=== PATIENT | female | born 1985 | race Caucasian/White ===

== ENCOUNTER → 2016-11-29 | Outpatient (CLI) | payer OTHER ==
[~2016-11-29] MED LIST: LEVO50TA6 PO; PRENTAB26 PO; PRT/40; ZNTT/150 PO
[2016-11-29 13:42] LABS: THYROID STIMULATING HORMONE 1.23 uIu/ml (0.300-4.500)
[2016-11-29 13:52] LABS: GTGD 50 Grams
== END | disposition home or self-care (01) ==
LOC: C.LAB1850 11:46
PROVIDERS: ATTEND Obstetrics & Gynecology
DX: Z00.00 Encounter for general adult medical examination without abnormal findings (principal); O99.280 Endocrine, nutritional and metabolic diseases complicating pregnancy, unspecified trimester

== ENCOUNTER → 2017-01-22 | Outpatient (CLI) | payer OTHER ==
[2017-01-22 11:00] LABS: THYROID STIMULATING HORMONE 2.14 uIu/ml (0.300-4.500)
== END | disposition home or self-care (01) ==
LOC: C.LAB1850 09:23
PROVIDERS: ATTEND Internal Medicine Endocrinology, Diabetes & Metabolism
DX: E03.9 Hypothyroidism, unspecified (principal)

== ENCOUNTER → 2017-02-12 | Outpatient (CLI) | payer OTHER ==
[2017-02-12 11:14] LABS: HEMATOCRIT 33.6 % (37-47)
[2017-02-12 11:42] LABS: GTGD 50 Grams
[2017-02-12 13:40] LABS: URINE APPEARANCE CLOUDY (CLEAR); URINE BILIRUBIN NEG (NEG); URINE COLOR YELLOW; URINE EPITHELIAL CELL AUTO >30 /lpf (0-5); URINE NITRITE NEG (NEG); URINE PH 7.5 (4.5-7.5); URINE SPECIFIC GRAVITY 1.021 (1.000-1.030); UROBILINOGEN NEG (NEG)
[2017-02-12 13:50] LABS: MANUAL MICROSCOPIC REQUIRED? NO; REVIEW REQ? NO
== END | disposition home or self-care (01) ==
LOC: C.LAB1850 09:17
PROVIDERS: ATTEND Obstetrics & Gynecology
DX: O09.293 Supervision of pregnancy with other poor reproductive or obstetric history, third trimester (principal); O99.283 Endocrine, nutritional and metabolic diseases complicating pregnancy, third trimester

== ENCOUNTER → 2017-04-04 | Outpatient (CLI) | payer OTHER ==
[~2017-04-04] MED LIST changes: +PANT40TA2; -PRT/40
[2017-04-04 09:50] LABS: THYROID STIMULATING HORMONE 2.47 uIu/ml (0.300-4.500)
== END | disposition home or self-care (01) ==
LOC: C.LAB1850 08:03
PROVIDERS: ATTEND Internal Medicine Endocrinology, Diabetes & Metabolism
DX: E03.9 Hypothyroidism, unspecified (principal)

== ENCOUNTER → 2017-04-11 | Outpatient (CLI) | payer OTHER ==
[2017-04-11 12:03] LABS: URINE APPEARANCE CLEAR (CLEAR); URINE BILIRUBIN NEG (NEG); URINE COLOR YELLOW; URINE NITRITE NEG (NEG); URINE SPECIFIC GRAVITY 1.005 (1.000-1.030); UROBILINOGEN NEG (NEG)
[2017-04-11 12:08] LABS: MANUAL MICROSCOPIC REQUIRED? NO; REVIEW REQ? NO
== END | disposition home or self-care (01) ==
LOC: C.LAB1850 10:18
PROVIDERS: ATTEND Obstetrics & Gynecology
DX: O09.293 Supervision of pregnancy with other poor reproductive or obstetric history, third trimester (principal); R39.9 Unspecified symptoms and signs involving the genitourinary system

== ENCOUNTER 2017-05-02 02:45 | Inpatient (IN) | payer OTHER ==
[~2017-05-02] VITALS: Ht 162.6 cm; Wt 64.0 kg
[2017-05-02 03:56] VITALS: Ht 162.6 cm; Wt 64.0 kg
[2017-05-02] MEDS ORDERED: ZNTT/150 PO (03:56)
[2017-05-02] MEDS ORDERED: LEVO50TA6 PO (03:56)
[2017-05-02] MEDS ORDERED: PANT40TA2 (03:56)
[2017-05-02] MEDS ORDERED: PRENTAB26 PO (03:56)
[2017-05-02] MEDS ORDERED: LACTATED RINGER'S 1000ML 1,000 ML IV PRN (04:00)
[2017-05-02 05:16] LABS: HEMATOCRIT 35.6 % (37-47); MEAN CELL VOLUME 95.7 fL (80-100); MEAN CORPUSCULAR HEMOGLOBIN 33.1 pg (25-34); MEAN CORPUSCULAR HGB CONC 34.6 g/dl (32-36); MEAN PLATELET VOLUME 11.6 fL (7.4-10.4); PLATELET COUNT 193 K/uL (130-400); RED BLOOD COUNT 3.72 M/uL (4.2-5.4); WHITE BLOOD COUNT 7.73 K/uL (4.8-10.8)
[2017-05-02] MEDS ORDERED: EpHEDrine SULFATE INJ 50 MG/ML AMP ONE (10:38)
[2017-05-02] MEDS ORDERED: FENTANYL 2MCG/ML ROPIV 1.25MG/ML 100ML BAG EPI ONE (10:38)
[2017-05-02] MEDS ORDERED: BUPIVACAINE 0.25% 30 ML VIAL ONE (10:38)
[2017-05-02] MEDS ORDERED: FENTANYL CITRATE INJ 50 MCG/1 ML 2 ML VIAL ONE (10:39)
[2017-05-02] MEDS ORDERED: NALOXONE HCL INJ 1 MG in SODIUM CHLORIDE 0.9% 1000ML 1,000 ML IV PRN (10:44)
[2017-05-02] MEDS ORDERED: LACTATED RINGER'S 1000ML 500 ML IV PRN ×2 (10:44→12:18)
[2017-05-02] MEDS ORDERED: NALOXONE HCL INJ 0.4 MG/1 ML VIAL/CARP IV PRN (10:45)
[2017-05-02] MEDS ORDERED: NALBUPHINE HCL INJ 10 MG/ML AMP IV PRN (10:45)
[2017-05-02] MEDS ORDERED: DiphenhydrAMINE HCL 50 MG/ML VIAL IV PRN (10:45)
[2017-05-02] MEDS ORDERED: ONDANSETRON INJ 2 MG/ML 2 ML VIAL IV PRN (10:45)
[2017-05-02] MEDS ORDERED: EpHEDrine SULFATE INJ 50 MG/ML AMP IV PRN (10:45)
[2017-05-02] MEDS: LACTATED RINGER'S 1000ML 1,000 ML IV SCH ×2 (11:16→17:30)
[2017-05-02] MEDS ORDERED: OXYTOCIN 30 UNITS/500ML NSS IV PRN ×2 (12:30→21:15)
[2017-05-02] MEDS: FENTANYL 2MCG/ML ROPIV 1.25MG/ML 100ML BAG EPI PRN ×2 (15:00→19:53)
[2017-05-02] MEDS ORDERED: LANOLIN OINT EXT PRN ×2 (21:15)
[2017-05-02] MEDS ORDERED: ACETAMINOPHEN/CODEINE 300/30MG TAB PO PRN ×2 (21:15)
[2017-05-02] MEDS ORDERED: BENZOCAINE 20% AER SPR 82.5 GM CAN EXT PRN (21:15)
[2017-05-02] MEDS ORDERED: ACETAMINOPHEN 325 MG TAB PO PRN (21:15)
[2017-05-02] MEDS ORDERED: HYDROCORTISONE ACETATE 25 MG SUPP PR PRN (21:15)
[2017-05-02] MEDS ORDERED: SUPERCREAM 0.870 % 15GM JAR EXT PRN (21:15)
[2017-05-02] MEDS ORDERED: DIPHTHERIA/TETANUS/PERTUSSIS 0.5 ML SYR/VIAL IM. ONE (21:15)
--- NOTE | 2017-05-02 21:43 | Anesthesia Procedure Note ---
Anesthesia Epidural Removal Nt Date & Time May 02, 2017 at 21:43 Vital Signs Pain Intensity: 1.0 Notes Mental Status: alert / awake / arousable, participated in evaluation Nausea / Vomiting: adequately controlled Pain: adequately controlled Airway Patency, RR, SpO2: stable & adequate BP & HR: stable & adequate Hydration State: stable & adequate Neuraxial Anesthesia: was administered, sensory block is resolving Anesthetic Complications: no major complications apparent, pt satisfied with anesthetic care Epidural: removed without complications, with tip intact
[2017-05-02] MEDS: OXYTOCIN INJ 20 UNITS in LACTATED RINGER'S 1000ML 1,000 ML IV SCH (21:52)
[2017-05-02] MEDS: IBUPROFEN 600 MG TAB PO PRN (23:18)
[2017-05-03] VITALS: BP 113/72; PULSE 79; TEMP 36.7
--- NOTE | 2017-05-03 01:21 | DELIVERY SUMMARY ---
DATE OF OPERATION: 05/02/2017 The patient dilated to complete and pushed to deliver a viable male Apgars 8 and 9 via over a partial third degree perineal laceration. Mouth and nose bulb suctioned at the perineum. Shoulders and body delivered with ease. vigorous and crying at . The was placed on the maternal abdomen. The cord was then doubly clamped and then cut. The placenta was delivered spontaneously intact, 3-vessel cord. Hemostasis achieved with dilute Pitocin and uterine massage. Laceration repaired in multiple layers in the usual fashion using 2-0 and 3-0 Vicryl. 1% lidocaine for extra anesthesia was administered. EBL 300 mL. Mother and baby stable in recovery. Cord gases sent. I attest to the content of the Intraoperative Record and any orders documented therein. Any exception s are noted below.
[2017-05-03 04:15] VITALS: BP 127/72; PULSE 69; TEMP 36.5
[2017-05-03] MEDS: IBUPROFEN 600 MG TAB PO PRN ×3 (04:15→18:09)
[2017-05-03 06:17] LABS: HEMATOCRIT 29.4 % (37-47)
--- NOTE | 2017-05-03 07:25 | Progress Note ---
Subjective May 03, 2017. Subjective conversation w/ patient, physical exam Ambulation: ambulating normally Voiding: no voiding problems Diet Tolerance: Regular Diet Lochia: Small Feeding Type: Breast Feeding Pain: bottom sore Objective Vital Signs Date Time Temp Pulse Resp B/P (MAP) Pulse Ox O2 Delivery O2 Flow Rate FiO2 05/03/17 04:15 36.5 69 20 127/72 (90) Room Air 05/03/17 00:00 36.7 79 20 113/72 (86) Room Air 05/03/17 00:00 Room Air Physical Exam General Appearance: WELL-APPEARING, WD/WN, NO APPARENT DISTRESS Respiratory/Chest: lungs clear Cardiovascular: regular rate, rhythm Abdomen: non tender, soft Fundus: Firm, Relation to Umbilicus (2 above, needs to void) Extremities: non-tender Laboratory Results Last 24 Hours Test 05/03/17 05:48 Hemoglobin 9.9 g/dL Hematocrit 29.4 % Assessment and Plan Post- Day#: 1 Continue Routine Care: stable, routine care. hgb noted.
[2017-05-03] MEDS: RANITIDINE HCL 150 MG TAB PO SCH ×2 (07:38→19:46)
[2017-05-03] MEDS: DOCUSATE SODIUM 100 MG CAP PO SCH ×2 (07:38→19:46)
[2017-05-03] MEDS: LEVOTHYROXINE 50 MCG TAB PO SCH (07:38)
[2017-05-03 08:11] VITALS: BP 130/76; PULSE 68; TEMP 36.6
[2017-05-03] MEDS: OXYTOCIN INJ 20 UNITS in LACTATED RINGER'S 1000ML 1,000 ML IV SCH (08:34)
[2017-05-03 11:30] VITALS: BP 116/76; PULSE 66; TEMP 36.5; O2SAT 96
[2017-05-03 15:05] VITALS: BP 126/79; PULSE 71; TEMP 36.3; O2SAT 98
[2017-05-03 19:00] VITALS: BP 134/82; PULSE 73; TEMP 36.5
[2017-05-04 00:01] VITALS: BP 108/64; PULSE 73; TEMP 36.3
--- NOTE | 2017-05-04 06:44 | Progress Note ---
Subjective May 04, 2017. Subjective conversation w/ patient, physical exam, lab review Ambulation: ambulating normally Voiding: no voiding problems Passing Gas: Yes Diet Tolerance: Regular Diet Lochia: Small Feeding Type: Breast Feeding Pain: controlled with oral pain meds Objective Vital Signs Date Time Temp Pulse Resp B/P (MAP) Pulse Ox O2 Delivery O2 Flow Rate FiO2 05/04/17 00:01 36.3 73 18 108/64 (79) Room Air 05/04/17 00:01 Room Air 05/03/17 19:00 36.5 73 18 134/82 (99) Room Air 05/03/17 15:05 36.3 71 18 126/79 (95) 98 Room Air 05/03/17 15:05 98 Room Air 05/03/17 11:30 36.5 66 18 116/76 (89) 96 Room Air 05/03/17 08:11 36.6 68 18 130/76 (94) Room Air 05/03/17 07:45 Room Air Physical Exam General Appearance: WELL-APPEARING, WD/WN, NO APPARENT DISTRESS Respiratory/Chest: lungs clear, normal breath sounds Cardiovascular: regular rate, rhythm Abdomen: normal bowel sounds, non tender, soft Fundus: Firm, Non-Tender, Relation to Umbilicus (at u) Extremities: non-tender, normal inspection, no pedal edema Assessment and Plan Post- Day#: 2 Continue Routine Care: Doing well. Plan d/c. Instructions given.
--- NOTE | 2017-05-04 06:46 | Discharge Instructions ---
Discharge Instructions Date of Service May 04, 2017. Admission Reason for Admission: LABOR Discharge Discharge Diagnosis / Problem: s/p vaginal delivery Discharge Goals Goal(s): Routine recovery after delivery Medications Continue Dispensed Medications: supercream, dermaplast, tucks, lansinoh Activity Recommendations Activity Limitations: per Instructions/Follow-up section . Instructions / Follow-Up Instructions / Follow-Up ACTIVITY RECOMMENDATIONS: * Gradual return to full activity over the next 2-3 weeks. * No lifting - nothing heavier than baby over the next 2-3 weeks. * Do not engage in vigorous exercise, sexual activity or sports until cleared by your physician. * Do not drive or operate any motorized equipment until cleared by your physician. * You may shower/bathe daily. MEDICATIONS: For discomfort or pain, you may use Acetaminophen (Tylenol), Ibuprofen (Advil), or Naproxen (Aleve) following the package directions. For constipation you may use Colace following the package directions. BREAST CARE: If you are not breast feeding: * Wear a supportive bra 24 hours a day for one to two weeks. * Avoid stimulating your breasts and nipples as much as possible during the first few weeks after delivery. * When taking a shower, have the warm water hit your back, not breasts. * When your breasts feel full, apply ice packs. Usually three to four times a day helps ease the discomfort. * Take a mild pain medication (Tylenol / Motrin) when you are uncomfortable. If breast feeding: * Use breast milk to lubricate nipples. Lansinoh cream may be used for sore nipples. You do not need to remove cream prior to breast feeding. If using a different brand of cream, check the label for directions regarding removal of cream prior to nursing. * Wear a supportive bra. * If having problems with breasts or breast feeding, call a lifestyle consultant or your health care provider. EPISIOTOMY CARE: After delivery, if you have an episiotomy (stitches), the following steps will ease discomfort and aid healing. * For the first 24 hours after delivery, place ice packs next to your episiotomy to help reduce swelling. * After the first 24 hour-period, sitz baths, either portable or in the tub, are suggested. A shower with a shower arm sprayed over the episiotomy may be comforting. * Lola care should be done after each voiding and bowel movement. Squirt warm water from a plastic bottle over the perineum (region of the body between the anus and urinary opening) and pat dry. * Use Dermoplast to ease discomfort. Shake container. [place] directly over the episiotomy. Place a Tucks on a clean sanitary pad next to your episiotomy. SPECIAL CARE INSTRUCTIONS: When you are discharged from the hospital, it is important for you to follow the instructions listed below: * During the first week at home, you should be able to care for yourself and your baby. In addition, the usual light household activities are encouraged. * Limit your activities to the way you feel. Do not try to clean the house or move furniture. Be sensible. * If you actively engage in sports and have done so up until the time of your delivery, you may resume these activities as soon as you feel able. This may take up to one month or even longer. Use good judgment. * Continue to take your vitamins for at least six weeks after the of your baby. * Your diet need not be limited unless you were on a special diet before your delivery. Breast-feeding mothers need around 2500 calories per day and at least 64-80 ounces of fluid per day (8 to 10 glasses). * You should eat foods from the four major food groups. Crash diets or fad diets are to be avoided. Eating lean meats, fresh fruits and vegetables, low-fat dairy products, high fiber foods and a regular exercise program, will help you get back to your pre- weight without putting your health at risk. * Constipation is sometimes a problem after delivery. Take a mild laxative as needed. If breast feeding, Milk of Magnesia is acceptable to use. You may use a suppository or Fleets enema if no episiotomy. * A daily shower or tub bath is suggested. Be sure to thoroughly and gently dry the perineum. * A bloody vaginal discharge will usually continue until around four weeks post . A small amount of bleeding may continue for as long as six weeks. Vaginal discharge changes from the bright red bleeding after delivery to pink then brownish and finally yellowish-pink before becoming white and disappearing. * Bleeding may increase with activity. Your first period may come in 4-8 weeks. If you are breast feeding, your period may be delayed even longer. * [place] (sex) can begin whenever both you and your partner feel comfortable and do not have any form of genital infection. It is recommended that you wait at least six weeks for internal and external healing to occur. If you have questions, please talk to your health care practitioner. A condom should be used to prevent infection and . * Foreplay, gentle intercourse and lubrication is very important the first several times to prevent pain. A water-based lubricant such as K-Y jelly or Astroglide may be used. * If you have RH negative blood and your baby is RH positive, you will receive RHOGAM by injection prior to discharge. The nurse will give you a card to keep with you that has the date and place that you received RHOGAM after delivery. * During your care, you had a Rubella screen done to check for the presence of rubella antibodies in your blood. If your test was negative, you will receive a Rubella vaccine prior to discharge. This vaccine may cause a fever, soreness at the injection site and flu-like symptoms. If these symptoms persist, notify your health care practitioner. is not advised for one month after a Rubella vaccine. * Verbalizes understanding of car seat law as reviewed with patient nursing. * Car Seat hand-out given and reviewed with patient by nursing. * Shaken baby information reviewed with patient by nursing. Call you doctor if: * Heavy bleeding (saturating several pads an hour) or passing clots the size of your fist. * A fever >101 degrees F (38.3 degrees C) on two occasions four hours apart and /or chills. * Unusual pain in the pelvic or vaginal areas. * "Baby Blues" lasting longer than two weeks. If you have any questions or concerns, call your health care practitioner at . FOLLOW UP VISIT: * Please call the office at to schedule a 6 week examination. It is important you keep this appointment. It is important for you to make arrangements for either yearly or twice yearly check-ups thereafter. Current Hospital Diet Patient's current hospital diet: Regular OB Diet Discharge Diet Recommended Diet: Regular Diet Pending Studies Studies pending at discharge: no Medical Emergencies . Who to Call and When: Medical Emergencies: If at any time you feel your situation is an emergency, please call 911 immediately. . Non-Emergent Contact Non-Emergency issues call your: [employer] . . "Provider Documentation" section prepared by Latasha Peña. . VTE Core Measure Inpt VTE Proph given/why not?: Treatment not indicated
[2017-05-04] MEDS: DOCUSATE SODIUM 100 MG CAP PO SCH (07:53)
[2017-05-04] MEDS: IBUPROFEN 600 MG TAB PO PRN ×2 (07:53→13:08)
[2017-05-04] MEDS: RANITIDINE HCL 150 MG TAB PO SCH (07:53)
[2017-05-04] MEDS: LEVOTHYROXINE 50 MCG TAB PO SCH (07:53)
[2017-05-04 08:00] VITALS: BP 129/85; PULSE 74; TEMP 36.4; O2SAT 98
[2017-05-04 13:55] VITALS: BP_DIAS 85; PULSE 74; TEMP 36.4
== END 2017-05-04 14:50 | disposition home or self-care (01) | DRG 775 ==
LOC: C.LD 02:45 → C.OPB 02:45 → C.LD 04:02 → C.OPB 04:02 → C.OBG 23:46
PROVIDERS: ADMIT Obstetrics & Gynecology; ATTEND Obstetrics & Gynecology
PROC: 10E0XZZ Delivery of Products of Conception, External Approach (ICD-10-PCS; principal; 2017-05-02)
PROC: 10H07YZ Insertion of Other Device into Products of Conception, Via Natural or Artificial Opening (ICD-10-PCS; principal; 2017-05-02)
PROC: 0DQR0ZZ Repair Anal Sphincter, Open Approach (ICD-10-PCS; principal; 2017-05-02)
DX: O99.284 Endocrine, nutritional and metabolic diseases complicating childbirth (principal); E07.9 Disorder of thyroid, unspecified; O76 Abnormality in fetal heart rate and rhythm complicating labor and delivery; O70.20 Third degree perineal laceration during delivery, unspecified; O99.62 Diseases of the digestive system complicating childbirth; K21.9 Gastro-esophageal reflux disease without esophagitis; Z3A.39 39 weeks gestation of pregnancy; Z37.0 Single live birth; Z79.899 Other long term (current) drug therapy

== ENCOUNTER → 2017-06-24 | Outpatient (CLI) | payer OTHER ==
[~2017-06-24] MED LIST changes: -PANT40TA2; +PRT/40
== END | disposition home or self-care (01) ==
LOC: C.PAPS 10:49
PROVIDERS: ATTEND Obstetrics & Gynecology
DX: Z12.4 Encounter for screening for malignant neoplasm of cervix (principal)

== ENCOUNTER → 2017-07-08 | Outpatient (CLI) | payer OTHER ==
[2017-07-08 10:13] LABS: THYROID STIMULATING HORMONE 1.5 uIu/ml (0.300-4.500)
== END | disposition home or self-care (01) ==
LOC: C.LAB1850 08:04
PROVIDERS: ATTEND Internal Medicine Endocrinology, Diabetes & Metabolism
DX: E03.9 Hypothyroidism, unspecified (principal)

== ENCOUNTER → 2017-11-05 | Outpatient (CLI) | payer OTHER ==
[~2017-11-05] MED LIST changes: +PANT40TA2; -PRT/40
[2017-11-05 10:01] LABS: THYROID STIMULATING HORMONE 2.13 uIu/ml (0.300-4.500)
== END | disposition home or self-care (01) ==
LOC: C.LAB1850 08:18
PROVIDERS: ATTEND Internal Medicine Endocrinology, Diabetes & Metabolism
DX: E03.9 Hypothyroidism, unspecified (principal)

== ENCOUNTER → 2017-12-19 | Outpatient (CLI) | payer OTHER | END | disposition home or self-care (01) | LOC: C.LAB1850 15:26 | PROVIDERS: ATTEND Internal Medicine Endocrinology, Diabetes & Metabolism | DX: E03.9 Hypothyroidism, unspecified (principal) ==

== ENCOUNTER → 2018-02-27 | Outpatient (CLI) | payer OTHER ==
[~2018-02-27] MED LIST changes: +RANI150T85 PO; -ZNTT/150 PO
== END | disposition home or self-care (01) ==
LOC: C.LAB1850 09:11
PROVIDERS: ATTEND Internal Medicine Endocrinology, Diabetes & Metabolism
DX: E03.9 Hypothyroidism, unspecified (principal)

== ENCOUNTER → 2018-07-09 | Outpatient (CLI) | payer OTHER ==
[~2018-07-09] MED LIST changes: +DEXL60CA4 PO; +FLUT0.15 NAE; +KETO0.024 OP; +LEVO25TA PO; +LEVO25TA5 PO; -LEVO50TA6 PO; +NORE1TAB50; -PANT40TA2; -RANI150T85 PO
== END | disposition home or self-care (01) ==
LOC: C.LAB1850 12:30
PROVIDERS: ATTEND Internal Medicine Endocrinology, Diabetes & Metabolism
DX: E03.9 Hypothyroidism, unspecified (principal)

== ENCOUNTER 2021-06-21 07:30 | Inpatient (IN) ==
[2021-06-21] MEDS ORDERED: OXYTOCIN 30 UNITS/500 ML BAG IV PRN ×2 (08:13)
[2021-06-21 08:46] LABS: Hematocrit (blood only) 37.2 % (37-47); Hemoglobin 12.5 g/dL (12.0-16.0); Mean Corpuscular Hemoglobin 33.4 pg (25-34); Mean Corpuscular Hgb Conc 33.6 g/dL (32-36); Mean Corpuscular Volume 99.5 fL (80-100); Platelet Count 231 K/uL (130-400); RDW Coefficient of Variation 14.7 % (11.5-14.5); RDW Standard Deviation 53.4 fL (36.4-46.3); Red Blood Count 3.74 M/uL (4.2-5.4)
[2021-06-21] MEDS: PANTOprazole 40 MG TAB PO SCH (08:52)
[2021-06-21] MEDS: LACTATED RINGER'S 1,000 ML IV PRN ×2 (09:37→12:53)
--- NOTE | 2021-06-21 09:54 | Labor Progress Brief Note ---
Date of Service June 21, 2021 Subjective Admitted for IOL due to postdates, AMA. Mccullough last night was still in place on arrival. Very crampy, no LOF/VB, good FM. Assessment & Plan (1) Supervision of elderly multigravida: (2) Post-dates : Plan: Induction with pitocin, eventual AROM, epidural on request. Admission and Anticipated Discharge Date Admission Date: June 21, 2021 Physical Exam Physical Exam: M[place]ullough removed with a gentle tug. Cervix 4/75/-2/soft/post. FHT Cat 1 [place] irregular. Membranes intact. Vertex presentation. EFW 7lb. Results & Data ([facility]) Vital Signs (Past 12 Hours) Vital Signs Temp Pulse Resp BP 06/21/21 09:52 70 113/67 06/21/21 07:59 98.1 F 16 06/21/21 07:38 98.1 F 86 16 119/74 Coding Level of Care Code None Diagnoses Supervision of elderly multigravida O09.529 Post-dates O48.0
--- NOTE | 2021-06-21 11:14 | Labor Progress Brief Note ---
Date of Service June 21, 2021 Subjective Tolerating contractions with breathing. Assessment & Plan Admission and Anticipated Discharge Date Admission Date: June 21, 2021 Physical Exam Physical Exam: Still /-2 Well applied, more anterior. AROM clear fluid FHT Cat 1 [place] Q4 Pit @ 7 [facility] Vital Signs (Past 12 Hours) Vital Signs Temp Pulse Resp BP 06/21/21 10:53 70 20 103/62 06/21/21 10:37 67 20 125/71 06/21/21 10:23 75 109/75 06/21/21 10:08 71 109/71 06/21/21 09:52 70 113/67 06/21/21 07:59 98.1 F 16 06/21/21 07:38 98.1 F 86 16 119/74 Coding Level of Care Code None
[2021-06-21] MEDS ORDERED: ePHEDrine sulfate 50 MG/ML AMP ONE (12:14)
[2021-06-21] MEDS ORDERED: SODIUM CHLORIDE 0.9% INJ 10 ML VIAL ONE (12:14)
[2021-06-21] MEDS ORDERED: BUPIVACAINE 0.25% 30 ML VIAL ONE (12:14)
[2021-06-21] MEDS ORDERED: fentaNYL citrate 100 MCG/2 ML VIAL ONE (12:14)
[2021-06-21] MEDS ORDERED: fentaNYL 2MCG/ML ROPIVACAINE 1.25MG/ML 100 ML BAG EPI ONE (12:15)
[2021-06-21] MEDS ORDERED: ePHEDrine sulfate 50 MG/ML AMP IV PRN (12:39)
[2021-06-21] MEDS ORDERED: diphenhydrAMINE 50 MG/ML VIAL IV PRN (12:39)
[2021-06-21] MEDS ORDERED: NALOXONE HCL 0.4 MG/1 ML VIAL/CARP IV PRN (12:39)
[2021-06-21] MEDS ORDERED: NALBUPHINE HCL INJ 10 MG/ML AMP IV PRN (12:39)
[2021-06-21] MEDS ORDERED: fentaNYL 2MCG/ML ROPIVACAINE 1.25MG/ML 100 ML BAG EPI PRN (12:39)
[2021-06-21] MEDS ORDERED: ONDANSETRON INJ 2 MG/ML 2 ML VIAL IV PRN (12:39)
[2021-06-21] MEDS ORDERED: NALOXONE HCL 1 MG in SODIUM CHLORIDE 0.9% 1000ML 1,000 ML IV PRN (12:39)
--- NOTE | 2021-06-21 12:39 | Anesthesiology Consultation ---
Date of Service June 21, 2021 Assessment & Plan ASA ASA2 Proposed Anesthesia Anesthesia Type: Labor Epidural Risk / Benefits Reviewed With: PT / POA / Parent / Guardian, Accepts Plan and Informed Consent Obtained History Height/Weight Height: 5 ft 4 in Weight: 68.833 kg Allergies Allergy/AdvReac Type Severity Reaction Status Date / Time barley Allergy Mild GI SYMPTOMS Verified 06/20/21 11:50 broccoli Allergy Mild GI SYMPTOMS Verified 06/20/21 11:50 cinnamon Allergy Mild GI SYMPTOMS Verified 06/20/21 11:50 peanut Allergy Mild GI SYMPTOMS Verified 06/20/21 11:50 squash Allergy Mild GI SYMPTOMS Verified 06/20/21 11:50 strawberry Allergy Mild GI SYMPTOMS Verified 06/20/21 11:50 tree nut Allergy Mild GI SYMPTOMS Verified 06/20/21 11:50 [place] Allergy Unknown GI SYMPTOMS Uncoded 04/13/21 09:06 Medications Home Medications Medication Instructions Recorded Confirmed Last Taken dexlansoprazole 60 mg 60 mg PO DAILY 06/20/21 06/21/21 06/20/21 08:00 capsule,biphase delayed release ferrous sulfate 325 mg (65 mg 325 mg PO DAILY 06/20/21 06/21/21 06/21/21 07:00 iron) tablet (Iron (ferrous sulfate)) levothyroxine 50 mcg tablet 50 mcg PO DAILY 06/20/21 06/21/21 06/21/21 06:00 vits no.124-ferrous fum 1 tab PO DAILY 06/20/21 06/21/21 06/20/21 21:00 27 mg iron-folic acid 800 mcg tablet ( Vitamin) Active Medications Generic Name Dose Route Start Last Admin Trade Name Christiano PRN Reason Stop Dose Admin Oxytocin 30 units in 500 mls @ 5 mls/hr 06/21/21 08:13 06/21/21 10:30 Pitocin IV 06/23/21 08:12 0.3 units/hr .Q24H PRN 5 mls/hr Labor Induction/Augmentation Titration Protocol 0.3 UNITS/HR Lactated Ringer's 1,000 mls @ 125 mls/hr 06/21/21 08:13 06/21/21 12:53 Lr IV 06/23/21 08:12 999 mls/hr .Q8H PRN Administration L&D Protocol Protocol Pantoprazole Sodium 40 mg 06/21/21 09:00 06/21/21 08:52 Pantoprazole 40 Mg Tab PO 07/21/21 08:59 40 mg DAILY MARINA Administration Protocol Past Medical History Medical History (Updated 06/21/21 @ 09:54 by Fouzia Givens MD) Anemia Mastitis Mood changes UTI (urinary tract infection) Exercise / Class Metabolic Activity II 4-5 Yardwork/Stairs/Walk up hill Past Family History Family History Father Diabetes Grandmother (Paternal) Breast cancer Grandmother (Maternal) Ovarian cancer Past Surgical History Surgical History History of esophagogastroduodenoscopy (EGD) (05/2018) [place] teeth extracted Past Anesthesia History No Hx of Anesthesia Complications and No Family Hx of Anesthesia Complications History of PONV No Hx of PONV and No Hx of Motion Sickness Social History Smoking Status: Never smoker Hx Alcohol Use: No Hx Substance Use: No substance use type: does not use Review of Systems denies fever/cough/ colds/ chest pain/ SOB/ STANISLAW denies STANISLAW Physical Exam Vital Signs Last Vital Signs Temp 36.7 C 06/21/21 12:06 Pulse 63 06/21/21 13:02 Resp 20 06/21/21 12:06 BP 134/66 06/21/21 13:02 Pulse Ox 92 06/21/21 13:00 ENMT Mouth: no TMJ abnormality and no dentition abnormality Thyromental Distance: > or= 3.5 Finger Breadths Mallampati Class: II Neck neck extension not limited Respiratory normal respiratory effort; no respiratory distress Auscultation: lungs clear to auscultation bilaterally Cardiovascular Rate/Rhythm: regular rate and regular rhythm Neurologic moves all extremities Psychiatric Orientation: alert and oriented x 3 Testing Laboratory Results 06/21/21 08:36
[2021-06-21] MEDS ORDERED: DIPHTHERIA/TETANUS/PERTUSSIS 0.5 ML SYR/VIAL IM ONE (16:45)
[2021-06-21] MEDS ORDERED: oxyCODONE/ACETAMINOPHEN 5mg/325mg TAB PO PRN (16:45)
[2021-06-21] MEDS ORDERED: BENZOCAINE 20% AER SPR 82.5 GM CAN EXT PRN (16:45)
[2021-06-21] MEDS ORDERED: HYDROCORTISONE ACETATE 25 MG SUPP PR PRN (16:45)
[2021-06-21] MEDS ORDERED: SUPERCREAM 0.870% 15 GM JAR EXT PRN (16:45)
--- NOTE | 2021-06-21 17:42 | Anesthesia Procedure Note ---
Date of Service June 21, 2021 Anesthesia Post Epidural Note Vital Signs Vital Signs: Temp Pulse Resp BP Pulse Ox 36.3 C L 80 20 110/64 97 06/21/21 16:13 06/21/21 17:36 06/21/21 17:18 06/21/21 17:36 06/21/21 16:00 Pain Intensity Left Hip: Pain Intensity: 0 Notes Mental Status: alert / awake / arousable and participated in evaluation Patient Amnestic to Procedure: Yes Nausea / Vomiting: adequately controlled Pain: adequately controlled Airway Patency, RR, SpO2: stable & adequate BP & HR: stable & adequate Hydration State: stable & adequate Anesthetic Complications: no major complications apparent and Pt Satisfied with anesthetic care
[2021-06-21] MEDS: IBUPROFEN 600 MG TAB PO PRN (20:19)
[2021-06-21] MEDS: DOCUSATE SODIUM 100 MG CAP PO SCH (20:20)
[2021-06-21] MEDS: ACETAMINOPHEN 325 MG TAB PO PRN (23:14)
[2021-06-22] MEDS: IBUPROFEN 600 MG TAB PO PRN ×4 (03:40→20:29)
[2021-06-22] MEDS: LEVOTHYROXINE SODIUM 50 MCG TABLET PO SCH (06:12)
--- NOTE | 2021-06-22 07:19 | Delivery Summary ---
Vaginal Delivery Summary Date of Service June 22, 2021 Vaginal Delivery Summary DIAGNOSES: 1. Philip intrauterine at 40w5d gestation. 2. Induction of labor. 3. Group B Streptococcus Neg. PROCEDURE: Spontaneous vaginal delivery and repair of second degree laceration. SURGEON: Fouzia Givens MD. CURBING STONECUTTER: None. ESTIMATED BLOOD LOSS: 300 mL. COMPLICATIONS: None. PLACENTA: Spontaneous and intact with a 3-vessel cord. DISPOSITION: Stable to labor and delivery. DESCRIPTION: The patient pushed well and brought the head to in OA position. The 's head was allowed to deliver with contraction force and no further active pushing, with the perineum protected during this time. There was no nuchal cord but there was a loop of cord which delivered alongside the head. The left shoulder was anterior. The shoulders and body delivered without any difficulty, and the infant was placed on the maternal abdomen. It was vigorous and moving all extremities, and making respiratory efforts. The cord was doubly clamped by the MD and then cut by the FOB. The placenta delivered spontaneously and was noted to be intact and with a 3VC. The cervix, vagina and perineum were examined and were found to have a second degree laceration which was repaired in the usual manner with vicryl suture, including a crown stitch to rebuild the perineal body. The fundus was firm and lochia minimal immediately after delivery. MNP Vaginal Delivery Charge Vaginal Delivery Codes: 35432 global code for the antepartum, delivery, and post-
--- NOTE | 2021-06-22 07:20 | Obstetrical Progress Note ---
Date of Service June 22, 2021 Assessment & Plan (1) state: Routine care, desires d/c tomorrow AM Subjective Ambulation: ambulating normally Voiding: no voiding problems Passing Gas:: Yes Diet Tolerance:: regular diet Lochia:: Small Feeding Type:: breast feeding Physical Exam Constitutional WD/WN, vitals as above Eyes PERRL, conjunctivae normal, anicteric sclerae Neck normal visual inspection Respiratory normal respiratory effort and able to speak in complete sentences; no respiratory distress and no labored breathing Cardiovascular Rate/Rhythm: regular rate and regular rhythm Extremities: no edema Chest (Breasts) Chest: normal inspection of chest Gastrointestinal (Abdomen) Inspection/Auscultation: abdomen normal to inspection Soft, postgravid Psychiatric A+Ox3, euthymic affect Genitourinary OB Exam Abdomen: + fundal height Fundus: + firm and + relation to umbilicus (fundus just below umbilicus); not tender Results & Data ([facility]) Vital Signs (Past 12 Hours) Vital Signs Temp Pulse Pulse Resp BP Pulse Ox 06/22/21 03:30 98.1 F 65 18 112/72 06/21/21 23:09 98.2 F 65 16 111/72 97 06/21/21 20:16 98.4 F 61 16 112/69 98
[2021-06-22] MEDS: DOCUSATE SODIUM 100 MG CAP PO SCH ×2 (08:11→20:29)
[2021-06-22] MEDS: PRENATAL VITAMIN 1 TAB PO SCH (08:12)
[2021-06-22] MEDS: PANTOprazole 40 MG TAB PO SCH (08:12)
[2021-06-22 09:05] LABS: Hematocrit (blood only) 33.3 % (37-47); Mean Corpuscular Hemoglobin 32.7 pg (25-34); Mean Corpuscular Volume 99.1 fL (80-100); Mean Platelet Volume 10.1 fL (7.4-10.4); Platelet Count 189 K/uL (130-400); RDW Coefficient of Variation 14.8 % (11.5-14.5); RDW Standard Deviation 53.6 fL (36.4-46.3); Red Blood Count 3.36 M/uL (4.2-5.4); White Blood Count 11.58 K/uL (4.8-10.8)
[2021-06-22] MEDS ORDERED: HYDROCORTISONE 1% OINT 30 GM TUBE EXT PRN (20:56)
[2021-06-22] MEDS: ACETAMINOPHEN 325 MG TAB PO PRN (21:40)
[2021-06-23] MEDS: LEVOTHYROXINE SODIUM 50 MCG TABLET PO SCH (06:25)
[2021-06-23 06:43] LABS: Hematocrit (blood only) 33.2 % (37-47); Hemoglobin 10.9 g/dL (12.0-16.0)
--- NOTE | 2021-06-23 07:15 | Obstetrical Progress Note ---
Date of Service June 23, 2021 Assessment & Plan (1) state: day #2 meets discharge criteria she has no extremity pain and instructions reviewed Subjective Ambulation: ambulating normally Voiding: no voiding problems Passing Gas:: Yes Diet Tolerance:: regular diet Lochia:: Small Results & Data ([facility]) Vital Signs (Past 12 Hours) Vital Signs Temp Pulse Resp BP 06/22/21 23:45 98.1 F 68 18 118/74
[2021-06-23] MEDS: PRENATAL VITAMIN 1 TAB PO SCH (07:47)
[2021-06-23] MEDS: IBUPROFEN 600 MG TAB PO PRN (07:47)
[2021-06-23] MEDS: PANTOprazole 40 MG TAB PO SCH (07:47)
[2021-06-23] MEDS: DOCUSATE SODIUM 100 MG CAP PO SCH (07:47)
== END 2021-06-23 11:42 | disposition home or self-care (01) | DRG 807 ==
LOC: 4S1 07:30 → 4S2 18:55